=== PATIENT | male | born 1975 ===

== ENCOUNTER 2016-11-25 08:02 | Day surgery (SDC) | payer MEDICAID ==
[2016-11-25 08:33] VITALS: BMI 36.0
[2016-11-25] MEDS ORDERED: Propofol 10 mg/ml Inj (20 ML) ONE ×2 (10:47)
[2016-11-25 11:44] VITALS: TEMP 98; O2SAT 96
[2016-11-25 11:45] VITALS: RESP 12
[2016-11-25 11:50] VITALS: BP 101/55; PULSE 69
== END 2016-11-25 11:45 | disposition home or self-care (01) ==
LOC: C.ENDO 08:02
PROVIDERS: ATTEND Internal Medicine Gastroenterology
DX: K29.50 Unspecified chronic gastritis without bleeding (principal); K57.30 Diverticulosis of large intestine without perforation or abscess without bleeding; K64.8 Other hemorrhoids; B19.20 Unspecified viral hepatitis C without hepatic coma; K59.00 Constipation, unspecified
CPT/HCPCS: 43239; 45378; 88305; 88342; J2704; J3010; J7040

== ENCOUNTER 2017-07-08 08:59 | Inpatient (IN) | payer MEDICAID ==
[2017-07-08 08:59] VITALS: BMI 36.0
[2017-07-08 09:48] LABS: BASO % 0.3 % (0.0-2.0); EOS # 0.3 K/uL (0.0-0.7); EOS % 2.2 % (0.0-4.0); HEMOGLOBIN 15.1 g/dL (12.0-18.0); LYMPH # 3.4 K/uL (1.0-4.3); LYMPH % 29.4 % (20.0-40.0); MEAN CORPUSCULAR HEMOGLOBIN 30.2 pg (27.0-31.0); MEAN CORPUSCULAR HGB CONC 34.3 g/dL (33.0-37.0); MEAN PLATELET VOLUME 8.8 fL (7.2-11.7); MONO # 0.9 K/uL (0.0-0.8); MONO % 7.6 % (0.0-10.0); NEUT % 60.5 % (50.0-75.0); RED CELL DISTRIBUTION WIDTH 13.1 % (11.5-14.5); WHITE BLOOD COUNT 11.5 K/uL (4.8-10.8)
[2017-07-08 09:52] LABS: URINE BILIRUBIN NEGATIVE (NEGATIVE); URINE BLOOD NEGATIVE (NEGATIVE); URINE CLARITY Clear (Clear); URINE COLOR Yellow (YELLOW); URINE GLUCOSE (UA) NORMAL (Normal); URINE LEUKOCYTE ESTERASE NEG Leu/uL (Negative); URINE NITRATE NEGATIVE (NEGATIVE); URINE PROTEIN NEGATIVE (NEGATIVE); URINE UROBILINOGEN NORMAL mg/dL (0.2-1.0)
--- NOTE | 2017-07-08 09:53 | C.PDOC ---
History Of Present Illness 42 y/o male presents to ED requesting heroin detox. Patient states he last used last night and denies any fever, chills, nausea, vomiting, chest pain or any other complaints at this time. Time Seen by Provider: 07/08/17 09:12 Chief Complaint (Nursing): Substance Abuse History Per: Patient History/Exam Limitations: no limitations Onset/Duration Of Symptoms: Days Current Symptoms Are (Timing): Still Present Suicide/Self Injury Attempted (Context): None Past Medical History Reviewed: Historical Data, Nursing Documentation, Vital Signs Vital Signs: Last Vital Signs Temp 99.5 F 07/08/17 09:05 Pulse 67 07/08/17 09:05 Resp 18 07/08/17 09:05 BP 143/89 07/08/17 09:35 Pulse Ox 97 07/08/17 10:06 - Medical History PMH: Anxiety, Depression, HTN Surgical History: Appendectomy Family History: States: No Known Family Hx - Social History Hx Alcohol Use: Yes Hx Substance Use: Yes (LAST USE LAST NIGHT) - Immunization History Hx Tetanus Toxoid Vaccination: No Hx Influenza Vaccination: No Hx Pneumococcal Vaccination: No Review Of Systems Constitutional: Negative for: Fever, Chills Cardiovascular: Negative for: Chest Pain Respiratory: Negative for: Shortness of Breath Gastrointestinal: Negative for: Nausea, Vomiting Skin: Negative for: Rash Psych: Negative for: Anxiety, Suicidal ideation, Withdrawal Physical Exam - Physical Exam Appears: Non-toxic, No Acute Distress Skin: Normal Color, Warm, Dry, No Rash Head: Atraumatic, Normacephalic Eye(s): bilateral: Normal Inspection Oral Mucosa: Moist Neck: Supple Cardiovascular: Rhythm Regular Respiratory: Normal Breath Sounds, No Rales, No Rhonchi, No Wheezing Gastrointestinal/Abdominal: Soft, No Tenderness, No Guarding, No Rebound Extremity: Normal ROM, Capillary Refill (<2 seconds) Neurological/Psych: Oriented x3 ED Course And Treatment - Laboratory Results Result Diagrams: 07/08/17 09:44 07/08/17 09:44 O2 Sat by Pulse Oximetry: 97 (RA) Pulse Ox Interpretation: Normal Medical Decision Making Medical Decision Making: Progress: Patient is medically cleared for detox aceepted by dr burgos Disposition - Disposition Disposition: HOSPITALIZED Disposition Time: 11:03 Condition: STABLE Forms: [facility] (Romanian) - Clinical Impression Clinical Impression: Opiate addiction - Scribe Statement The provider has reviewed the documentation as recorded by the Scribe Kelly Liang All medical record entries made by the Scribe were at my direction and personally dictated by me. I have reviewed the chart and agree that the record accurately reflects my personal performance of the history, physical exam, medical decision making, and the department course for this patient. I have also personally directed, reviewed, and agree with the discharge instructions and disposition. Decision To Admit - Pt Status Changed To: Hospital Disposition Of: Inpatient - Admit Certification Admit to Inpatient:: After my assessment, the patient will require hospitalization for at least two midnights. This is because of the severity of symptoms shown, intensity of services needed, and/or the medical risk in this patient being treated as an outpatient. - InPatient: Physician Admission Certification: I certify that this patient requires 2 or more midnights of care for the following reason:: needs detox - . Bed Request Type: Detox Admitting Physician: Rubio Burgos Patient Diagnosis: Opiate addiction
--- NOTE | 2017-07-08 10:04 | RAD ---
HISTORY: pysch COMPARISON: No prior. TECHNIQUE: Chest PA and lateral FINDINGS: LUNGS: No active pulmonary disease. PLEURA: No significant pleural effusion identified. No pneumothorax apparent. CARDIOVASCULAR: Normal. OSSEOUS STRUCTURES: No significant abnormalities. VISUALIZED UPPER ABDOMEN: Normal. OTHER FINDINGS: None. IMPRESSION: No active disease.
[2017-07-08 10:05] LABS: ALB/GLOB RATIO 1.1 (1.0-2.1); ALT/SGPT 30 U/L (21-72); AST/SGOT 21 U/L (17-59); BLOOD UREA NITROGEN 11 mg/dL (9-20); CALCIUM 8.3 mg/dl (8.6-10.4); GFR AFRICAN-AMERICAN > 60; GFR NON-AFRICAN AMERICAN > 60
[2017-07-08 10:16] LABS: BARBITURATES, UR NEGATIVE (NEGATIVE); BENZODIAZEPINES, UR NEGATIVE (NEGATIVE); PHENCYCLIDINE, UR NEGATIVE (NEGATIVE)
[2017-07-08 10:41] LABS: OPIATES, UR POSITIVE (NEGATIVE)
[2017-07-08] MEDS ORDERED: Aluminum Hydroxide/Magnesium Hydroxide Susp (30 mL) PO PRN (13:17)
--- NOTE | 2017-07-08 13:36 | PCM.BM ---
<Jenni Johnson - Last Filed: 07/08/17 13:35> Treatment Plan Problems - Problems identified on initial assessmt Potential for opiate withdrawal Date Initiated: 07/08/17 Assessment reference: NA Status: Active Treatment assets and liabiliti Patient Assests: adapts well, cooperative, motivated, ADL independent, negotiates basic needs, good interpersonal skills Patient Liabilities: substance abuse - Milieu Protocol Maintain good personal hygiene: daily Encourage regular showers, daily Remind patient to perform daily oral care, daily Assist patient to perform ADL's Conduct patient checks and document Observation sheet: Q15 minutes Maintain personal safety: every shift Educate patient to report safety concerns to staff, every shift Monitor environment for contraband/sharps Medication safety: Monitor for expected outcome, potential side effects: every shift, Assess barriers to learning: every shift, Assess readiness for medication education: every shift <Tasia Christopher - Last Filed: 07/10/17 11:52> Family Contact Family involvement: Patient does not wish Family/SO involvement Family contact: Patient declines to allow family contact at present - Goals for Treatment Patient goals for treatment: COMPLETE DETOX, ATTEND OUTPATIENT COUNSELING AND SUPPLEMENT WITH 12-STEP MEETINGS. Discharge/Continuing Care - Education Needs Education Needs: Patient Medication, Patient Diagnosis/Disease Process, Patient Coping Skills, Patient Anger Management skills, Patient Placement options, Patient Community resources - Discharge Discharge Criteria: No longer exhibiting s/s of withdrawal, Reduction of target symptoms Discharge to:: Home - Treatment Team Participation Patient/Family/SO Statement: 07/10/17 11:54 "I GO TO MEETINGS BUT I'LL TRY OUTPATIENT..." Discussed with Family/SO: No Was Patient/Family/SO present at Treatment Team Meeting: Yes <Rubio Graham - Last Filed: 07/10/17 23:41> - Diagnosis (1) Opiate addiction Status: Acute Interventions: 07/10/17 23:41 * Assess 7x/week regarding severity of withdrawal * Educate regarding risks, benefits, side effects and alternatives of medications * Use Motivational Interviewing for abstinence * Use CBT for relapse prevention * Medication management for withdrawal symptoms * Encourage medication assisted treatment *
[2017-07-08] MEDS: Metoprolol Succinate 100 mg XL Tab PO SCH (14:14)
--- NOTE | 2017-07-09 00:29 | PCM.PSYCH ---
Initial Psychiatric Evaluation - Initial Psychiatric Evaluation Type of Admission: Voluntary Legal Status: Capacity Chief Complaint (in patient's own words): "I need detox" History of Present Illness and Precipitating Events: The pt is seen, chart reviewed and case discussed He is a 42 yo LM, single w 3 children (7, 10, 21 y/o), unemployed, lives with GF He is here for heroin detox: using 7 bags intranasally x 1 month Relapsed after 1 year sobriety but has a 22-yr hx He was in detox 7x and rehab 3x No MAT but NA Used cocaine, Xanax and MJ in the past but nothing else anymore Smokes 1/2 ppd Has mild anxiety/dep sxs Past psych hx: No admissions but using lexapro for dep/YAHIR Medical hx: HTN Family psych hx: Cousins use heroin Current Medications: Active Medications Generic Name Dose Route Start Last Admin Trade Name Freq PRN Reason Stop Dose Admin Al Hydrox/Mg Hydrox/Simethicone 30 ml 07/08/17 13:17 Maalox 30 Ml PO TID PRN Indigestion / Heartburn Clonidine HCl 0.1 mg 07/08/17 13:17 Catapres PO Q8 PRN COWS Score More or Equal to 5 Escitalopram Oxalate 10 mg 07/08/17 13:30 07/08/17 14:14 Lexapro PO Not Given DAILY GIANFRANCO Hydroxyzine HCl 50 mg 07/08/17 13:16 07/08/17 22:00 Atarax PO 50 mg Q6H PRN Administration Anxiety Ibuprofen 600 mg 07/08/17 13:16 Motrin Tab PO Q6H PRN Pain, moderate (4-7) Loperamide HCl 2 mg 07/08/17 13:17 Imodium PO Q8 PRN Diarrhea Metoprolol Succinate 100 mg 07/08/17 13:30 07/08/17 14:14 Toprol Xl PO Not Given DAILY GIANFRANCO Nicotine 1 patch 07/08/17 14:00 07/08/17 14:14 Nicoderm Cq TD Not Given DAILY GIANFRANCO Ondansetron HCl 4 mg 07/08/17 13:17 Zofran Tab PO Q8 PRN Nausea/Vomiting Trazodone HCl 100 mg 07/08/17 13:16 07/08/17 22:00 Desyrel PO 100 mg HS PRN Administration Insomnia Past Psychiatric History - Past Psychiatric History Previous Treatment History: None (outpt only) Pertinent Medical Hx (Current Medical&Sleep Prob, Allergies): Allergies Allergy/AdvReac Type Severity Reaction Status Date / Time FISH AdvReac Severe RASH Verified 07/08/17 15:01 Ergocalciferol [Drisdol 50,000 Intl Units Cap] 1 cap PO QWK 11/25/16 Escitalopram [Lexapro] 10 mg PO DAILY 11/25/16 Fluticasone Propionate [Flovent Diskus] 50 mcg IH BID 11/25/16 Metoprolol Succinate [Toprol XL] 100 mg PO DAILY 11/25/16 RX: Naproxen 500 mg PO PRN PRN 11/25/16 traZODone [trazODONE HYDROCHLORIDE] 50 mg PO DAILY 11/25/16 Review of Systems - Neurological Neurological: UNREMARKABLE - Psychiatric Psychiatric: Abnormal Sleep Pattern, Anxiety, Difficulty Concentrating. absent : Hallucinations, Homicidal Ideation, Paranoia, Suicidal Ideation Mental Status Examination - Personal Presentation Personal Presentation: Looks older than stated age - Affect Affect: Constricted - Motor Activity Motor Activity: Calm - Reliability in Providing Information Reliability in Providing Information: Good - Speech Speech: Organized - Mood Mood: Anxious - Formal Thought Process Formal Thought Process: No Impairment - Cognitive Functions Orientation: Person, Place, Situation, Time Sensorium: Alert Attention/Concentration: Easily distracted Estimate of Intelligence: Average Judgement: Intact, as evidence by: Insight regarding need for hospitalization Memory: Recent intact, as evidence by: Ability to recall events of the day, Remote intact, as evidenced by: Abilit to recall sig. 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
[2017-07-09] MEDS: Metoprolol Succinate 100 mg XL Tab PO SCH (09:20)
[2017-07-09 09:49] VITALS: RESP 18
--- NOTE | 2017-07-09 15:17 | PCM.PYCHPN ---
Psychiatric Progress Note - Psychiatric Progress Note Patient seen today, length of contact: 16 min Patient Chief Complaint: "I am a little better" Problems Identified/Issues Discussed: The pt is seen, chart reviewed, case discussed with staff. The pt is compliant with medications and reports no side-effects. Symptoms are improving but needs more time to stabilize. After care discussed, support and psychoeducation given. Medication Change: Yes (detox changes daily) Medical Record Reviewed: Yes Mental Status Examination - Cognitive Function Orientation: Person, Place, Situation, Time Memory: Intact Attention: WNL Concentration: WNL Association: WNL Fund of Knowledge: WNL - Mood Mood: Anxious - Affect Affect: Constricted - Speech Speech: Appropriate - Formal Thought Process Formal Thought Process: No Impairment - Suicidal Ideation Suicidal Ideation: No - Homicidal Ideation Homicidal Ideation: No Goal/Treatment Plan - Goal/Treatment Plan Need for Continued Stay: Discharge may exacerbated symptoms, Severe functional impairment Progress Toward Problem(s) and Goals/Treatment Plan: Methadone detox As needed medications Lexapro for YAHIR and dep Attend groups and activities Supportive therapy and psychoeducation [place] for abstinence CBT for relapse prevention Encourage MAT Refer to rehab or IOP Attend self-help groups as well Nicotine patch and [place] for tobacco
[2017-07-10] MEDS: Metoprolol Succinate 100 mg XL Tab PO SCH (09:58)
--- NOTE | 2017-07-10 20:50 | PCM.PYCHPN ---
Psychiatric Progress Note - Psychiatric Progress Note Patient seen today, length of contact: 16 min Patient Chief Complaint: "I am OK" Problems Identified/Issues Discussed: The pt is seen, chart reviewed, case discussed with staff. Support given, CBT and MD used briefly No new symptoms reported, improving slowly and needs more time No SEs from medications, risks discussed. After care discussed Medication Change: Yes (detox changes daily) Medical Record Reviewed: Yes Mental Status Examination - Cognitive Function Orientation: Person, Place, Situation, Time Memory: Intact Attention: WNL Concentration: WNL Association: WNL Fund of Knowledge: WNL - Mood Mood: Anxious - Affect Affect: Constricted - Speech Speech: Appropriate - Formal Thought Process Formal Thought Process: No Impairment - Suicidal Ideation Suicidal Ideation: No - Homicidal Ideation Homicidal Ideation: No Goal/Treatment Plan - Goal/Treatment Plan Need for Continued Stay: Discharge may exacerbated symptoms, Severe functional impairment Progress Toward Problem(s) and Goals/Treatment Plan: Methadone detox As needed medications Lexapro for YAHIR and dep Attend groups and activities Supportive therapy and psychoeducation MD for abstinence CBT for relapse prevention Encourage MAT Refer to rehab or IOP Attend self-help groups as well Nicotine patch and MD for tobacco
--- NOTE | 2017-07-11 08:47 | PCM.PYCHDC ---
Mental Status Examination - Mental Status Examination Orientation: Person Discharge Summary - Discharge Note Consultations:: List each consultation separately and include: 1. Reason for request. 2. Findings. 3. Follow-up Summary of Hospital Course include:: 1. Description of specific treatment plan utilized for patients during their course of treatmen. 2. Summarize the time- course for resolution of acute symptoms and/or regressed behaviors. 3. Describe issues identified and worked on during hospitalization. 4. Describe medication utilized. 5. Describe medical problems identified and treated. 6. Reassessment of suicide risk Summary of Hospital Course: The pt is seen, chart reviewed and case discussed He is a 42 yo LM, single w 3 children (7, 10, 21 y/o), unemployed, lives with GF He is here for heroin detox: using 7 bags intranasally x 1 month Relapsed after 1 year sobriety but has a 22-yr hx He was in detox 7x and rehab 3x No MAT but NA Used cocaine, Xanax and MJ in the past but nothing else anymore Smokes 1/2 ppd Has mild anxiety/dep sxs Past psych hx: No admissions but using lexapro for dep/YAHIR Medical hx: HTN Family psych hx: Cousins use heroin - Diagnosis (1) Opiate addiction Current Visit: Yes Status: Acute - Final Diagnosis (DSM 5) Condition upon Discharge: STABLE Disposition: HOME/ ROUTINE Follow-up Treatment Plan: Methadone detox As needed medications Lexapro for YAHIR and dep Attend groups and activities Supportive therapy and psychoeducation [place] for abstinence CBT for relapse prevention Encourage MAT Refer to rehab or IOP Attend self-help groups as well Nicotine patch and [place] for tobacco Prescriptions/Medication Reconciliation: Escitalopram [Lexapro] 10 mg PO DAILY #30 tab Metoprolol Succinate [Toprol XL] 100 mg PO DAILY #30 tab traZODone [Desyrel] 100 mg PO HS PRN #30 tab PRN Reason: Insomnia
[2017-07-11] MEDS: Metoprolol Succinate 100 mg XL Tab PO SCH (09:02)
[2017-07-11 09:58] VITALS: BP 114/70; PULSE 63; TEMP 98.4; O2SAT 97
== END 2017-07-11 10:45 | disposition home or self-care (01) | DRG 745 ==
LOC: C.ER 08:59 → C.7D 11:03
PROVIDERS: ADMIT Psychiatry & Neurology Psychiatry; ATTEND Psychiatry & Neurology Psychiatry
PROC: HZ2ZZZZ Detoxification Services for Substance Abuse Treatment (ICD-10-PCS; principal; 2017-07-08)
PROC: HZ52ZZZ Individual Psychotherapy for Substance Abuse Treatment, Cognitive-Behavioral (ICD-10-PCS; 2017-07-08)
PROC: HZ42ZZZ Group Counseling for Substance Abuse Treatment, Cognitive-Behavioral (ICD-10-PCS; 2017-07-08)
PROC: HZ59ZZZ Individual Psychotherapy for Substance Abuse Treatment, Supportive (ICD-10-PCS; 2017-07-08)
PROC: HZ56ZZZ Individual Psychotherapy for Substance Abuse Treatment, Psychoeducation (ICD-10-PCS; 2017-07-08)
PROC: HZ46ZZZ Group Counseling for Substance Abuse Treatment, Psychoeducation (ICD-10-PCS; 2017-07-08)
DX: F11.23 Opioid dependence with withdrawal (principal); F13.21 Sedative, hypnotic or anxiolytic dependence, in remission; F32.9 Major depressive disorder, single episode, unspecified; I10 Essential (primary) hypertension; F41.1 Generalized anxiety disorder; F14.21 Cocaine dependence, in remission; F17.210 Nicotine dependence, cigarettes, uncomplicated; G47.00 Insomnia, unspecified

== ENCOUNTER 2017-09-15 13:08 | Inpatient (IN) | payer MEDICAID, OTHER ==
[2017-09-15 13:08] VITALS: BMI 36.0
[2017-09-15 14:25] LABS: BASO # 0.1 K/uL (0.0-0.2); BASO % 0.6 % (0.0-2.0); EOS # 0.1 K/uL (0.0-0.7); EOS % 1.3 % (0.0-4.0); HEMOGLOBIN 14.1 g/dL (12.0-18.0); LYMPH # 2.3 K/uL (1.0-4.3); LYMPH % 25.1 % (20.0-40.0); MEAN CELL VOLUME 87.7 fL (80.0-94.0); MEAN CORPUSCULAR HGB CONC 34.3 g/dL (33.0-37.0); MEAN PLATELET VOLUME 8.8 fL (7.2-11.7); MONO # 0.6 K/uL (0.0-0.8); NEUT # 6.1 K/uL (1.8-7.0); RBC 4.71 Mil/uL (4.40-5.90); RED CELL DISTRIBUTION WIDTH 13.6 % (11.5-14.5); WHITE BLOOD COUNT 9.3 K/uL (4.8-10.8)
[2017-09-15 14:27] LABS: SQUAMOUS EPITHIAL < 1 /hpf (0-5); URINE BILIRUBIN NEGATIVE (NEGATIVE); URINE BLOOD NEGATIVE (NEGATIVE); URINE CLARITY Clear (Clear); URINE COLOR Yellow (YELLOW); URINE GLUCOSE (UA) NORMAL (Normal); URINE LEUKOCYTE ESTERASE NEG Leu/uL (Negative); URINE PROTEIN NEGATIVE (NEGATIVE); URINE UROBILINOGEN NORMAL mg/dL (0.2-1.0)
[2017-09-15 14:44] LABS: ALB/GLOB RATIO 1.1 (1.0-2.1); ALBUMIN 4.2 g/dL (3.5-5.0); ALT/SGPT 28 U/L (21-72); AST/SGOT 26 U/L (17-59); BLOOD UREA NITROGEN 10 mg/dL (9-20); CALCIUM 8.9 mg/dl (8.6-10.4); GFR AFRICAN-AMERICAN > 60; GFR NON-AFRICAN AMERICAN > 60
--- NOTE | 2017-09-15 14:48 | C.PDOC ---
History Of Present Illness Pt is here requesting detox from Heroin. Time Seen by Provider: 09/15/17 13:27 Chief Complaint (Nursing): Substance Abuse History Per: Patient Onset/Duration Of Symptoms: Days Current Symptoms Are (Timing): Still Present Suicide/Self Injury Attempted (Context): None Modifying Factor(s): Narcotics Severity: Moderate Associated Symptoms: denies: Suicidal Thoughts, Suicidal Plan Additional History Per: Prior Records Past Medical History Reviewed: Historical Data, Nursing Documentation, Vital Signs Vital Signs: Last Vital Signs Temp 98.1 F 09/15/17 13:15 Pulse 76 09/15/17 13:15 Resp 18 09/15/17 13:15 BP 131/95 H 09/15/17 13:15 Pulse Ox 98 09/15/17 14:49 - Medical History PMH: Anxiety, Depression, Hepatitis (C, treated.), HTN Surgical History: Appendectomy - [facility] DETOXIFICATION SERVICES FOR SUBSTANCE ABUSE TREATMENT (07/08/17) GROUP COMMUNITY SERVICE DIRECTOR FOR SUBSTANCE ABUSE TREATMENT, PSYCHOEDUCATION (07/08/17) GROUP COMMUNITY SERVICE DIRECTOR FOR SUBSTANCE ABUSE, COGNITIVE BEHAVIORAL (07/08/17) INDIV PSYCHOTHERAPY FOR SUBSTANCE ABUSE TREATMENT, SUPPORT (07/08/17) INDIV PSYCHOTHERAPY FOR SUBSTANCE ABUSE, COGNITIV BEHAVIORAL (07/08/17) INDIV PSYCHOTHERAPY FOR SUBSTANCE ABUSE, PSYCHOEDUCATION (07/08/17) Family History: States: Unknown Family Hx - Social History Hx Tobacco Use: Yes Hx Alcohol Use: Yes (occasional drinking) Hx Substance Use: Yes (IVDU HEROIN, XANAX) - Immunization History Hx Tetanus Toxoid Vaccination: No Hx Influenza Vaccination: No Hx Pneumococcal Vaccination: No Review Of Systems Except As Marked, All Systems Reviewed And Found Negative. Constitutional: Negative for: Fever, Weakness Cardiovascular: Negative for: Chest Pain Respiratory: Negative for: Shortness of Breath Gastrointestinal: Negative for: Vomiting, Abdominal Pain Musculoskeletal: Negative for: Neck Pain Skin: Negative for: Rash Neurological: Negative for: Weakness, Numbness, Seizures, Altered Mental Status Physical Exam - Physical Exam Appears: Non-toxic, No Acute Distress Skin: Normal Color, Warm, Dry Head: Atraumatic, Normacephalic Eye(s): bilateral: PERRL, EOMI Neck: Normal ROM, Supple Cardiovascular: Rhythm Regular Respiratory: Normal Breath Sounds, No Accessory Muscle Use Gastrointestinal/Abdominal: Soft, No Tenderness Extremity: Normal ROM, Other (Track ocampo on upper extremities) Neurological/Psych: Oriented x3, Normal Cognition, Normal Motor, Normal Sensation ED Course And Treatment - Laboratory Results Result Diagrams: 09/15/17 14:21 09/15/17 14:21 Lab Interpretation: No Acute Changes O2 Sat by Pulse Oximetry: 98 Pulse Ox Interpretation: Normal Progress Note: Pt is medically stable for detox admission. Disposition Counseled Patient/Family Regarding: Studies Performed, Diagnosis - Disposition Disposition: HOSPITALIZED Disposition Time: 15:25 Condition: STABLE - Clinical Impression Clinical Impression: Opioid dependence Decision To Admit - Pt Status Changed To: Hospital Disposition Of: Inpatient - Admit Certification Admit to Inpatient:: After my assessment, the patient will require hospitalization for at least two midnights. This is because of the severity of symptoms shown, intensity of services needed, and/or the medical risk in this patient being treated as an outpatient. - InPatient: Physician Admission Certification: I certify that this patient requires 2 or more midnights of care for the following reason:: Detox. - . Bed Request Type: Detox Admitting Physician: Rubio Graham Patient Diagnosis: Opioid dependence
[2017-09-15 14:53] LABS: BARBITURATES, UR NEGATIVE (NEGATIVE); PHENCYCLIDINE, UR NEGATIVE (NEGATIVE)
[2017-09-15 15:09] LABS: BENZODIAZEPINES, UR POSITIVE (NEGATIVE); OPIATES, UR POSITIVE (NEGATIVE)
--- NOTE | 2017-09-15 20:11 | PCM.BM ---
<ShayyMerlyn - Last Filed: 09/15/17 20:10> Treatment Plan Problems - Problems identified on initial assessmt Potential for opiate withdrawal Date Initiated: 09/15/17 Time Initiated: 20:11 Assessment reference: NA Status: Active Treatment assets and liabiliti Patient Assests: cooperative, ADL independent, negotiates basic needs, good interpersonal skills Patient Liabilities: substance abuse (Heroin) - Milieu Protocol Maintain good personal hygiene: daily Encourage regular showers, daily Remind patient to perform daily oral care, daily Assist patient to perform ADL's Conduct patient checks and document Observation sheet: Q15 minutes Maintain personal safety: every shift Educate patient to report safety concerns to staff, every shift Monitor environment for contraband/sharps Medication safety: Monitor for expected outcome, potential side effects: every shift, Assess barriers to learning: every shift, Assess readiness for medication education: every shift <Rubio Graham - Last Filed: 09/16/17 21:33> - Diagnosis (1) Opioid use disorder, severe, dependence Status: Acute Interventions: 09/16/17 21:33 * Assess 7x/week regarding severity of withdrawal * Educate regarding risks, benefits, side effects and alternatives of medications * Use Motivational Interviewing for abstinence * Use CBT for relapse prevention * Medication management for withdrawal symptoms * Encourage medication assisted treatment *
[2017-09-15] MEDS ORDERED: Aluminum Hydroxide/Magnesium Hydroxide Susp (30 mL) PO PRN (22:40)
[2017-09-16] MEDS: Metoprolol Succinate 100 mg XL Tab PO SCH (11:08)
--- NOTE | 2017-09-16 14:05 | PCM.PSYCH ---
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 He is here for heroin detox: using 6-7 bags IV for the past 2-3 months. Relapsed since his last detox at [facility] in July 2017. Patient states when he left here he used the very next day. Patient has also previously relapsed after 1 year sobriety but has a 22-yr history. He was in detox 7x and rehab 3x. Used cocaine, Xanax and MJ in the past but nothing else anymore Smokes 1/2 pack per day for the last 10-15 years. Past psych hx: Has mild anxiety/dep sxs Medical hx: HTN Family psych hx: Cousins use heroin Current Medications: Active Medications Generic Name Dose Route Start Last Admin Trade Name Freq PRN Reason Stop Dose Admin Al Hydrox/Mg Hydrox/Simethicone 30 ml 09/15/17 22:40 Maalox 30 Ml PO TID PRN Indigestion / Heartburn Clonidine HCl 0.1 mg 09/15/17 22:40 Catapres PO Q8 PRN COWS Score More or Equal to 5 Hydroxyzine HCl 25 mg 09/15/17 22:23 09/15/17 22:43 Atarax PO 25 mg Q6 PRN Administration Anxiety Ibuprofen 600 mg 09/15/17 22:48 Motrin Tab PO Q6H PRN Pain, moderate (4-7) Loperamide HCl 2 mg 09/15/17 22:40 Imodium PO Q8 PRN Diarrhea Methadone HCl 15 mg 09/16/17 10:00 09/16/17 11:08 Methadone PO 09/20/17 09:59 15 mg Q24H GIANFRANCO Administration Taper Metoprolol Succinate 100 mg 09/16/17 10:00 09/16/17 11:08 Toprol Xl PO 100 mg DAILY GIANFRANCO Administration Ondansetron HCl 4 mg 09/15/17 22:40 Zofran Tab PO Q8 PRN Nausea/Vomiting Trazodone HCl 50 mg 09/15/17 22:22 09/15/17 22:43 Desyrel PO 50 mg HS PRN Administration Insomnia Past Psychiatric History - Past Psychiatric History Previous Treatment History: Inpatient At [facility] hospital: [facility] Date: 07/08/17 Duration: 4 days Nature of Treatment: Detox Pertinent Medical Hx (Current Medical&Sleep Prob, Allergies): Allergies Allergy/AdvReac Type Severity Reaction Status Date / Time FISH AdvReac Severe RASH Verified 09/15/17 13:20 traZODone [trazODONE HYDROCHLORIDE] 50 mg PO DAILY 11/25/16 Metoprolol Succinate [Toprol XL] 100 mg PO DAILY #30 tab 07/11/17 Review of Systems - Constitutional Constitutional: Chills - Neurological Neurological: UNREMARKABLE - Psychiatric Psychiatric: Anxiety Mental Status Examination - Personal Presentation Personal Presentation: Looks stated age - Affect Affect: Constricted - Reliability in Providing Information Reliability in Providing Information: Fair - Speech Speech: Organized - Mood Mood: Anxious - Formal Thought Process Formal Thought Process: No Impairment - Cognitive Functions Orientation: Person, Place, Situation, Time Judgement: Intact, as evidence by: Insight regarding need for hospitalization Memory: Recent intact, as evidence by: Ability to recall events of the day - Strength & Assets Inventory Strength & Assets Inventory: Cooperative - Limitations Limitations: Other DSM 5 DX - DSM 5 DSM 5 Diagnosis: Opioid withdrawal Opioid use d/o - severe YAHIR 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
[2017-09-17] MEDS: Metoprolol Succinate 100 mg XL Tab PO SCH (10:13)
--- NOTE | 2017-09-17 11:31 | PCM.PYCHPN ---
Psychiatric Progress Note - Psychiatric Progress Note Patient seen today, length of contact: 16 min Patient Chief Complaint: "Can't sleep" Problems Identified/Issues Discussed: The pt is seen, chart reviewed, case discussed with staff. The pt is compliant with medications and reports no side-effects. Symptoms are improving but needs more time to stabilize. After care discussed, support and psychoeducation given. Medication Change: Yes (detox changes daily) Medical Record Reviewed: Yes Mental Status Examination - Cognitive Function Orientation: Person, Place, Situation, Time Memory: Intact Attention: WNL Concentration: Poor Association: WNL Fund of Knowledge: WNL - Mood Mood: Anxious - Affect Affect: Constricted - Speech Speech: Appropriate - Formal Thought Process Formal Thought Process: No Impairment - Suicidal Ideation Suicidal Ideation: No - Homicidal Ideation Homicidal Ideation: No Goal/Treatment Plan - Goal/Treatment Plan Need for Continued Stay: Discharge may exacerbated symptoms, Severe functional impairment Progress Toward Problem(s) and Goals/Treatment Plan: Methadone detox As needed medications Metoprolol Succinate for HTN Attend groups and activities Supportive therapy and psychoeducation SD for abstinence CBT for relapse prevention Encourage MAT Refer to rehab or IOP Attend self-help groups as well Smoking cessation with SD Nicotine patch if needed
[2017-09-18] MEDS: Metoprolol Succinate 100 mg XL Tab PO SCH (10:00)
--- NOTE | 2017-09-18 13:34 | PCM.PYCHPN ---
Psychiatric Progress Note - Psychiatric Progress Note Patient seen today, length of contact: 16 min Patient Chief Complaint: "I did not sleep well last night" Problems Identified/Issues Discussed: The pt is seen, chart reviewed, case discussed with staff. The pt is compliant with medications and reports no side-effects. Symptoms are improving but needs more time to stabilize. After care discussed, support and psychoeducation given. Medication Change: Yes (detox changes daily) Medical Record Reviewed: Yes Mental Status Examination - Cognitive Function Orientation: Person, Place, Situation, Time Memory: Intact Attention: WNL Concentration: Poor Association: WNL Fund of Knowledge: WNL - Mood Mood: Anxious - Affect Affect: Constricted - Speech Speech: Appropriate - Formal Thought Process Formal Thought Process: No Impairment - Suicidal Ideation Suicidal Ideation: No - Homicidal Ideation Homicidal Ideation: No Goal/Treatment Plan - Goal/Treatment Plan Need for Continued Stay: Discharge may exacerbated symptoms, Severe functional impairment Progress Toward Problem(s) and Goals/Treatment Plan: Methadone detox As needed medications Metoprolol Succinate for HTN Attend groups and activities Supportive therapy and psychoeducation MO for abstinence CBT for relapse prevention Encourage MAT Refer to rehab or IOP Attend self-help groups as well Smoking cessation with MO Nicotine patch if needed 33 min
[2017-09-19 06:34] VITALS: PULSE 71
[2017-09-19] MEDS: Metoprolol Succinate 100 mg XL Tab PO SCH (09:13)
[2017-09-19 10:23] VITALS: BP 119/81; RESP 20; TEMP 99.1; O2SAT 99
--- NOTE | 2017-09-19 11:54 | PCM.PYCHDC ---
Mental Status Examination - Mental Status Examination Orientation: Person, Place, Situation, Time Memory: Intact Mood: Neutral Speech: Appropriate Attention: WNL Concentration: WNL Association: WNL Fund of Knowledge: WNL Formal Thought Process: No Impairment Suicidal Ideation: No Current Homicidal Ideation?: No Discharge Summary - Discharge Note Reason for Hospitalization: Heroin detox Psychiatric History (includes Medical, Family, Personal Hx): Detox Consultations:: List each consultation separately and include: 1. Reason for request. 2. Findings. 3. Follow-up Summary of Hospital Course include:: 1. Description of specific treatment plan utilized for patients during their course of treatmen. 2. Summarize the time- course for resolution of acute symptoms and/or regressed behaviors. 3. Describe issues identified and worked on during hospitalization. 4. Describe medication utilized. 5. Describe medical problems identified and treated. 6. 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 He is here for heroin detox: using 6-7 bags IV for the past 2-3 months. Relapsed since his last detox at [facility] in July 2017. Patient states when he left here he used the very next day. Patient has also previously relapsed after 1 year sobriety but has a 22-yr history. He was in detox 7x and rehab 3x. Used cocaine, Xanax and MJ in the past but nothing else anymore Smokes 1/2 pack per day for the last 10-15 years. Past psych hx: Has mild anxiety/dep sxs Medical hx: HTN Family psych hx: Cousins use heroin Hospital Course: The pt was admitted and started on treatment with psychotherapy, support, psychoeducation and medications. NM and CBT used. The pt attended groups and activities, as well as milieu therapy. All the risks and benefits of medications are discussed and the patient understood and agreed. The pt improved with the treatments provided. 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 Follow after care plan as discussed. Use relapse prevention skills Return to ER or call 911 if suicidal, homicidal or symptoms relapse. Stay away from stress, alcohol and drugs. See primary doctor regularly and get labs.
== END 2017-09-19 10:00 | disposition home or self-care (01) | DRG 895 ==
LOC: C.ER 13:08 → C.7D 15:26
PROVIDERS: ADMIT Psychiatry & Neurology Psychiatry; ATTEND Psychiatry & Neurology Psychiatry
PROC: HZ2ZZZZ Detoxification Services for Substance Abuse Treatment (ICD-10-PCS; principal; 2017-09-15)
PROC: HZ52ZZZ Individual Psychotherapy for Substance Abuse Treatment, Cognitive-Behavioral (ICD-10-PCS; 2017-09-15)
PROC: HZ42ZZZ Group Counseling for Substance Abuse Treatment, Cognitive-Behavioral (ICD-10-PCS; 2017-09-15)
PROC: HZ59ZZZ Individual Psychotherapy for Substance Abuse Treatment, Supportive (ICD-10-PCS; 2017-09-15)
PROC: HZ56ZZZ Individual Psychotherapy for Substance Abuse Treatment, Psychoeducation (ICD-10-PCS; 2017-09-15)
PROC: HZ46ZZZ Group Counseling for Substance Abuse Treatment, Psychoeducation (ICD-10-PCS; 2017-09-15)
DX: F11.23 Opioid dependence with withdrawal (principal); F14.21 Cocaine dependence, in remission; F32.9 Major depressive disorder, single episode, unspecified; F41.1 Generalized anxiety disorder; I10 Essential (primary) hypertension; Z87.891 Personal history of nicotine dependence

== ENCOUNTER 2018-09-23 09:33 | Inpatient (IN) | payer MEDICAID, OTHER ==
[2018-09-23 09:33] VITALS: BMI 36.0
--- NOTE | 2018-09-23 11:31 | C.PDOC ---
History Of Present Illness 43 y/o male with PMHx of substance abuse presents to the ED requesting detox from heroin. Patient admits to using IV heroin, last use was approximately 8-9pm last night. He denies any other drug use. He denies any tremors, chills, ab dominal pain, vomiting, palpitations, SOB, or other symptoms of withdrawal. Patient also denies any SI, HI, or hallucinations. He offers no other complaints. Time Seen by Provider: 09/23/18 10:25 Chief Complaint (Nursing): Substance Abuse History Per: Patient History/Exam Limitations: no limitations Onset/Duration Of Symptoms: Days Current Symptoms Are (Timing): Still Present Suicide/Self Injury Attempted (Context): None Modifying Factor(s): Other (Heroin) Associated Symptoms: denies: Suicidal Thoughts, Suicidal Plan Additional History Per: Prior Records Past Medical History Reviewed: Historical Data, Nursing Documentation, Vital Signs Vital Signs: Last Vital Signs Temp 98.8 F 09/23/18 09:45 Pulse 88 09/23/18 09:45 Resp 18 09/23/18 09:45 BP 113/79 09/23/18 09:45 Pulse Ox 98 09/23/18 09:45 - Medical History PMH: Anxiety, Depression, Hepatitis (C, treated.), HTN Denies: Diabetes, HIV, Chronic Kidney Disease, Seizures, Sexually Transmitted Disease Surgical History: Appendectomy - [facility] Procedures DETOXIFICATION SERVICES FOR SUBSTANCE ABUSE TREATMENT (09/15/17) GROUP HATCHERY MAN FOR SUBSTANCE ABUSE TREATMENT, PSYCHOEDUCATION (09/15/17) GROUP HATCHERY MAN FOR SUBSTANCE ABUSE, COGNITIVE BEHAVIORAL (09/15/17) INDIV PSYCHOTHERAPY FOR SUBSTANCE ABUSE TREATMENT, SUPPORT (09/15/17) INDIV PSYCHOTHERAPY FOR SUBSTANCE ABUSE, COGNITIV BEHAVIORAL (09/15/17) INDIV PSYCHOTHERAPY FOR SUBSTANCE ABUSE, PSYCHOEDUCATION (09/15/17) Family History: States: Unknown Family Hx - Social History Hx Tobacco Use: Yes Hx Alcohol Use: No Hx Substance Use: Yes - Immunization History Hx Tetanus Toxoid Vaccination: No Hx Influenza Vaccination: No Hx Pneumococcal Vaccination: No Review Of Systems Except As Marked, All Systems Reviewed And Found Negative. Constitutional: Negative for: Fever, Chills Eyes: Negative for: Vision Change Cardiovascular: Negative for: Chest Pain, Palpitations Respiratory: Negative for: Shortness of Breath Gastrointestinal: Negative for: Vomiting, Abdominal Pain Musculoskeletal: Negative for: Back Pain Neurological: Negative for: Weakness, Numbness Physical Exam - Physical Exam Appears: Well, Non-toxic, No Acute Distress Skin: Normal Color, Warm, No Rash Head: Normacephalic Eye(s): bilateral: PERRL Oral Mucosa: Moist Neck: Trachea Midline, No Midline Cervical Tenderness, No Paracervical Tenderness, Supple Chest: Symmetrical Cardiovascular: Rhythm Regular, No Murmur Respiratory: Normal Breath Sounds, No Accessory Muscle Use, No Rhonchi, No Wheezing Gastrointestinal/Abdominal: Soft, No Tenderness, No Distention, No Guarding Extremity: Bilateral: Atraumatic, Normal Color And Temperature, Normal ROM Neurological/Psych: Oriented x3, Normal Speech, Normal Cranial Nerves, Normal Motor, Normal Sensation, Normal Reflexes Gait: Steady ED Course And Treatment - Laboratory Results Result Diagrams: 09/23/18 11:53 09/23/18 11:53 Lab Interpretation: No Acute Changes O2 Sat by Pulse Oximetry: 98 (on RA) Pulse Ox Interpretation: Normal Progress Note: Labs ordered for medical clearance, and reviewed. farrowing worker to see patient and evaluate for possible detox. Pt remained tsable during the ED evaluation. AAO#3. Blood owrk review and appears normal. Pt was eval by SHUKRI Todd, case discussed with [id number] and admission arranged to detox floor. Disposition - Disposition Disposition: HOSPITALIZED Disposition Time: 12:55 Condition: STABLE - Clinical Impression Clinical Impression: Opioid use disorder, severe, dependence - PA / [employer]CR[employer] / Resident Statement MD/DO has reviewed & agrees with the documentation as recorded. - Scribe Statement The provider has reviewed the documentation as recorded by the Scribbart Edwards All medical record entries made by the Jayshree were at my direction and personally dictated by me. I have reviewed the chart and agree that the record accurately reflects my personal performance of the history, physical exam, medical decision making, and the department course for this patient. I have also personally directed, reviewed, and agree with the discharge instructions and disposition.
[2018-09-23 12:06] LABS: BASO % 0.3 % (0.0-2.0); EOS # 0.2 K/uL (0.0-0.7); EOS % 2.5 % (0.0-4.0); HEMOGLOBIN 15.7 g/dL (12.0-18.0); LYMPH % 27.4 % (20.0-40.0); MEAN CORPUSCULAR HEMOGLOBIN 29.9 pg (27.0-31.0); MEAN CORPUSCULAR HGB CONC 33.6 g/dL (33.0-37.0); MEAN PLATELET VOLUME 9.5 fL (7.2-11.7); MONO # 0.6 K/uL (0.0-0.8); MONO % 8.7 % (0.0-10.0); NEUT # 4.5 K/uL (1.8-7.0); NEUT % 61.1 % (50.0-75.0); NRBC % 0.1 % (0.0-2.0); RBC 5.24 Mil/uL (4.40-5.90); RED CELL DISTRIBUTION WIDTH 13.5 % (11.5-14.5); WHITE BLOOD COUNT 7.4 K/uL (4.8-10.8)
[2018-09-23 12:11] LABS: URINE BILIRUBIN NEGATIVE (NEGATIVE); URINE BLOOD NEGATIVE (NEGATIVE); URINE CLARITY Clear (Clear); URINE COLOR Amber (YELLOW); URINE GLUCOSE (UA) NORMAL (Normal); URINE LEUKOCYTE ESTERASE NEG Leu/uL (Negative); URINE PROTEIN NEGATIVE (NEGATIVE); URINE UROBILINOGEN NORMAL mg/dL (0.2-1.0)
[2018-09-23 12:21] LABS: ALB/GLOB RATIO 1.3 (1.0-2.1); ALBUMIN 4.4 g/dL (3.5-5.0); ALT/SGPT 28 U/L (21-72); AST/SGOT 31 U/L (17-59); BLOOD UREA NITROGEN 13 mg/dL (9-20); CALCIUM 9.6 mg/dl (8.6-10.4); GFR NON-AFRICAN AMERICAN > 60
[2018-09-23 12:39] LABS: BARBITURATES, UR NEGATIVE (NEGATIVE); PHENCYCLIDINE, UR NEGATIVE (NEGATIVE)
[2018-09-23 13:02] LABS: BENZODIAZEPINES, UR POSITIVE (NEGATIVE); OPIATES, UR POSITIVE (NEGATIVE)
--- NOTE | 2018-09-23 13:54 | PCM.BM ---
<Mohsen Goodwin - Last Filed: 09/23/18 13:52> Treatment Plan Problems - Problems identified on initial assessmt denial Date Initiated: 09/23/18 Time Initiated: 13:52 Assessment reference: NA Status: Active defensive coping Date Initiated: 09/23/18 Time Initiated: 13:53 Assessment reference: NA Status: Active chronic low self esteem Date Initiated: 09/23/18 Time Initiated: 13:54 Assessment reference: NA Status: Active Treatment assets and liabiliti Patient Assests: cooperative, ADL independent, negotiates basic needs, good interpersonal skills Patient Liabilities: substance abuse, medical problems - Milieu Protocol Maintain good personal hygiene: daily Encourage regular showers, daily Remind patient to perform daily oral care, daily Assist patient to perform ADL's Conduct patient checks and document Observation sheet: Q15 minutes Maintain personal safety: every shift Educate patient to report safety concerns to staff, every shift Monitor environment for contraband/sharps Medication safety: Monitor for expected outcome, potential side effects: every shift, Assess barriers to learning: every shift, Assess readiness for medication education: every shift <Dami De Los Santos - Last Filed: 09/24/18 15:56> - Diagnosis (1) Opioid use disorder, severe, dependence Status: Acute Interventions: 09/24/18 15:57 * Assess/adjust medications daily and /or as needed * See patient on an individual basis 7x/week to assess symptoms of depression * Monitor for side effects & effectiveness of medications (2) Sedative, hypnotic or anxiolytic use disorder, mild, abuse Status: Acute Interventions: 09/24/18 15:57 * Assess/adjust medications daily and /or as needed * See patient on an individual basis 7x/week to assess symptoms of depression * Monitor for side effects & effectiveness of medications <Tasia Christopher - Last Filed: 09/25/18 10:26> Family Contact Family involvement: Famliy/SO not involved - Goals for Treatment Patient goals for treatment: COMPLETE DETOX AND DISCUSS AFTERCARE OPTIONS WITH CLINICAL STAFF. Discharge/Continuing Care - Education Needs Education Needs: Patient Medication, Patient Diagnosis/Disease Process, Patient Coping Skills, Patient Anger Management skills, Patient Placement options, Patient Community resources - Discharge Discharge Criteria: No longer exhibiting s/s of withdrawal, Reduction of target symptoms Discharge to:: Other (AFTERCARE TBD. OF THIS WRITING, PT. IS UNSURE.) - Treatment Team Participation Patient/Family/SO Statement: 09/25/18 10:26 "I DON'T KNOW WHAT I WANNA DO YET..." Discussed with Family/SO: No Was Patient/Family/SO present at Treatment Team Meeting: Yes
[2018-09-23] MEDS ORDERED: Aluminum Hydroxide/Magnesium Hydroxide Susp (30 mL) PO PRN (14:56)
--- NOTE | 2018-09-24 16:04 | PCM.PSYCH ---
Initial Psychiatric Evaluation - Initial Psychiatric Evaluation Type of Admission: Voluntary Legal Status: Capacity Chief Complaint (in patient's own words): I relapsed on heroin and I need help. History of Present Illness and Precipitating Events: Patient is a 43 years old, single, employed, male with no previous psychiatric history was admitted due to withdrawing from opioids and anxiolytic. Opioid: Patient started using heroin about 20 years ago, increased gradually, currently he was using up to 15 bags of heroin daily, IV. Last used 2 days ago. This is patient's third detox here at [facility]. His last detox at [facility] was in September 2017. Patient reported that he relapsed after discharge from the hospital. Anxiolytic: Patient's urine drug screen was also positive for benzodiazepine. Patient was guarded about further details but reported that he is using Xanax or Klonopin at times. Last used reported yesterday. Cigarettes: Patient smokes 1/2 to 1 pack of cigarettes daily, refused to take nicotine patch. Patient has history of appendicectomy. Patient was arrested many times in the past. His last arrest was in 2004 due to distribution of drugs. He is not on any probation. Patient was born in [place] and has 12 grade of education. 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 Patient lives with his girlfriend, never . Patient has 3 children with ages of 21, 12 and 8 years. His children who are from 3 different females live with their mothers. His height is 5 feet 7 inches and weight is 210 pounds. Current Medications: Active Medications Generic Name Dose Route Start Last Admin Trade Name Freq PRN Reason Stop Dose Admin Al Hydrox/Mg Hydrox/Simethicone 30 ml 09/23/18 14:56 Maalox 30 Ml PO TID PRN Indigestion / Heartburn Clonidine HCl 0.1 mg 09/23/18 14:52 09/23/18 21:07 Catapres PO 0.1 mg Q4 PRN Administration COWS Score More or Equal to 5 Dicyclomine HCl 10 mg 09/23/18 14:56 Bentyl PO Q6 PRN Muscle spasm Gabapentin 400 mg 09/23/18 18:00 09/24/18 13:36 Neurontin PO 400 mg TID GIANFRANCO Administration Hydroxyzine HCl 25 mg 09/23/18 14:57 09/23/18 21:07 Atarax PO 25 mg Q6 PRN Administration Anxiety Ibuprofen 600 mg 09/23/18 14:56 Motrin Tab PO Q6 PRN Pain, moderate (4-7) Loperamide HCl 2 mg 09/23/18 14:56 Imodium PO Q8 PRN Diarrhea Lorazepam 0.5 mg 09/23/18 15:00 09/23/18 21:07 Ativan PO 0.5 mg Q6 PRN Administration Anxiolytiv withdrawing Methadone HCl 15 mg 09/24/18 10:00 09/24/18 09:13 Methadone PO 09/27/18 09:59 15 mg Q24H GIANFRANCO Administration Taper Ondansetron HCl 4 mg 09/23/18 14:56 Zofran Tab PO Q8 PRN Nausea/Vomiting Trazodone HCl 50 mg 09/23/18 22:00 09/23/18 21:07 Desyrel PO 50 mg HS GIANFRANCO Administration Past Psychiatric History - Past Psychiatric History Previous Treatment History: Inpatient At [facility] hospital: [facility] Nature of Treatment: History of 2 previous detox. History of Abuse: None reported History of ETOH/Drug Use: See HPI History of Family Illness: Patient has extensive family history of psychiatric illness. Patient reported that he is paternal grandfather, his father and 4 of his paternal uncles committed suicide. Also that his older brother was using heroin, who of heart attack. Pertinent Medical Hx (Current Medical&Sleep Prob, Allergies): Allergies Allergy/AdvReac Type Severity Reaction Status Date / Time FISH AdvReac Severe RASH Verified 09/15/17 13:20 traZODone [trazODONE HYDROCHLORIDE] 50 mg PO DAILY 11/25/16 Metoprolol Succinate XL [Toprol XL] 100 mg PO DAILY #30 tab 07/11/17 Hypertension Hepatitis C Review of Systems - Psychiatric Psychiatric: As Per HPI, Abnormal Sleep Pattern, Anhedonia, Anxiety Mental Status Examination - Personal Presentation Personal Presentation: Looks stated age - Affect Affect: Other (Appropriate) - Motor Activity Motor Activity: Calm - Reliability in Providing Information Reliability in Providing Information: Fair - Speech Speech: Organized - Mood Mood: Anxious - Formal Thought Process Formal Thought Process: No Impairment - Hallucinations/Delusions Hallucinations: Other (None reported) Delusions: Other - Obsessions/Compulsions Obsessions: None Compulsions: None - Cognitive Functions Orientation: Person, Place, Situation, Time Sensorium: Alert Attention/Concentration: Attentive Abstract Thinking: [place] Estimate of Intelligence: Average Judgement: Intact, as evidence by: Insight regarding need for hospitalization Memory: Recent intact, as evidence by: Ability to recall events of the day, Remote intact, as evidenced by: Ability to recall historical events - Risk Risk: Withdrawal, Diminished functioning - Strength & Assets Inventory Strength & Assets Inventory: Employment status, Cooperative - Limitations Limitations: Other (Lives with his girlfriend.) DSM 5 DX - DSM 5 DSM 5 Diagnosis: Opioid withdrawal Opioid use disorder severe Anxiolytic use disorder moderate - Recommended/Plan of Treatment Treatment Recommendations and Plan of Treatment: Patient education. Supportive therapy. CBT for relapse prevention. IA for abstinence. We will start methadone taper for opioid withdrawal symptoms. We will start Ativan 0.5 mg p.o. every 6 hours as needed for anxiolytic withdrawal. Other as needed medications. Projected ELOS: 4-5 days - Smoking Cessation Smoking Cessation Initiated: No Reason for not providing: Patient refused
--- NOTE | 2018-09-25 16:36 | RAD ---
Date of service: 09/25/2018 HISTORY: Rehab placement COMPARISON: 07/08/2017. TECHNIQUE: Chest PA and lateral FINDINGS: LINES AND TUBES: None. LUNG AND PLEURA: The lungs are well inflated and clear. No pleural effusion or pneumothorax. HEART AND MEDIASTINUM: The heart is not enlarged. No aortic atherosclerotic calcifications present. The hilar and mediastinal contours are within normal limits. SKELETAL STRUCTURES: The bony structures are within normal limits for the patient's age. VISUALIZED UPPER ABDOMEN: Normal. OTHER FINDINGS: None. IMPRESSION: No active pulmonary disease.
--- NOTE | 2018-09-25 23:49 | PCM.PYCHPN ---
Psychiatric Progress Note - Psychiatric Progress Note Patient Chief Complaint: I relapsed on heroin and I need help. Medication Change: No Medical Record Reviewed: Yes Mental Status Examination - Cognitive Function Orientation: Person, Place, Situation, Time - Mood Mood: Anxious - Affect Affect: Other (Appropriate) - Formal Thought Process Formal Thought Process: No Impairment Goal/Treatment Plan - Goal/Treatment Plan Progress Toward Problem(s) and Goals/Treatment Plan: Patient education. Supportive therapy. CBT for relapse prevention. WA for abstinence. We will start methadone taper for opioid withdrawal symptoms. We will start Ativan 0.5 mg p.o. every 6 hours as needed for anxiolytic withdrawal. Other as needed medications.
--- NOTE | 2018-09-26 22:19 | PCM.PYCHPN ---
Psychiatric Progress Note - Psychiatric Progress Note Patient seen today, length of contact: 15 Minutes Patient Chief Complaint: "I am feeling much better today" Problems Identified/Issues Discussed: Patient was seen and chart was reviewed. Case was discussed with staff. Issued related to the illness and treatment were discussed with the patient, and issues related to illness and treatment were discussed with the patient and staff. Patient reported compliance with treatment and no adverse effects from the medications were reported. Patient is tolerating treatment well at this time. Patient reports minimal withdrawal symptoms such as body aches, sweating, and, decreased sleep. Patient reports mood as improved, affect is congruent with mood. Aftercare was discussed with patient and he verbalized understanding. Patient denies any delusions, auditory/visual hallucinations, or perceptual disturbances. Patient also denies any suicidal or homicidal ideation/plan/intent at this time. Medication Change: No Medical Record Reviewed: Yes Mental Status Examination - Cognitive Function Orientation: Person, Place, Situation, Time Memory: Intact Attention: WNL Concentration: WNL Association: WNL Fund of Knowledge: Poor - Mood Mood: Anxious - Affect Affect: Blunted, Other (Appropriate) - Speech Speech: Appropriate - Formal Thought Process Formal Thought Process: No Impairment - Suicidal Ideation Suicidal Ideation: No - Homicidal Ideation Homicidal Ideation: No Goal/Treatment Plan - Goal/Treatment Plan Progress Toward Problem(s) and Goals/Treatment Plan: All risks, benefits and alternatives of the medications discussed, and the patient agreed and understood Attend group activities Supportive therapy and psychoeducation [place] for abstinence CBT for relapse prevention Encourage MAT Refer to rehab or IOP, self-help groups UT for encouraging 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
[2018-09-27 06:32] VITALS: TEMP 98.2
[2018-09-27 08:44] VITALS: BP 120/82; PULSE 85; RESP 20; O2SAT 99
--- NOTE | 2018-09-27 19:05 | PCM.PYCHDC ---
Mental Status Examination - Mental Status Examination Orientation: Person, Place, Situation, Time Memory: Intact Mood: Neutral Affect: Broad Speech: Appropriate Attention: WNL Concentration: WNL Association: WNL Fund of Knowledge: WNL Formal Thought Process: No Impairment Description of patient's judgement and insight: Fair Suicidal Ideation: No Current Homicidal Ideation?: No Discharge Summary - Discharge Note Psychiatric History (includes Medical, Family, Personal Hx): History of 2 previous detox. Consultations:: List each consultation separately and include: 1. Reason for request. 2. Findings. 3. Follow-up Summary of Hospital Course include:: 1. Description of specific treatment plan utilized for patients during their course of treatmen. 2. Summarize the time- course for resolution of acute symptoms and/or regressed behaviors. 3. Describe issues identified and worked on during hospitalization. 4. Describe medication utilized. 5. Describe medical problems identified and treated. 6. Reassessment of suicide risk Summary of Hospital Course: The pt was admitted and started on treatment with psychotherapy, support, psychoeducation and medications. All the risks and benefits of medications are discussed and the patient understood and agreed. SC and CBT used. The pt attended groups and activities, as well as milieu therapy. The pt improved with the treatments provided. After care discussed with the patient. - Diagnosis (1) Opioid use disorder, severe, dependence Status: Acute (2) Sedative, hypnotic or anxiolytic use disorder, mild, abuse Assessment and Plan: Continue below medications after discharge. Follow after care plan as discussed. Use relapse prevention skills Return to ER or call 911 if suicidal, homicidal or symptoms relapse. Stay away from stress, alcohol and drugs. See primary doctor regularly and get labs. Status: Acute - Final Diagnosis (DSM 5) Condition upon Discharge: STABLE Disposition: HOME/ ROUTINE
== END 2018-09-27 10:30 | disposition home or self-care (01) | DRG 895 ==
LOC: C.ER 09:33 → C.7D 12:55
PROC: HZ2ZZZZ Detoxification Services for Substance Abuse Treatment (ICD-10-PCS; principal; 2018-09-23)
PROC: HZ52ZZZ Individual Psychotherapy for Substance Abuse Treatment, Cognitive-Behavioral (ICD-10-PCS; 2018-09-23)
PROC: HZ59ZZZ Individual Psychotherapy for Substance Abuse Treatment, Supportive (ICD-10-PCS; 2018-09-23)
PROC: HZ56ZZZ Individual Psychotherapy for Substance Abuse Treatment, Psychoeducation (ICD-10-PCS; 2018-09-23)
PROC: HZ42ZZZ Group Counseling for Substance Abuse Treatment, Cognitive-Behavioral (ICD-10-PCS; 2018-09-23)
PROC: HZ46ZZZ Group Counseling for Substance Abuse Treatment, Psychoeducation (ICD-10-PCS; 2018-09-23)
PROC: GZHZZZZ Group Psychotherapy (ICD-10-PCS; 2018-09-23)
PROC: GZ58ZZZ Individual Psychotherapy, Cognitive-Behavioral (ICD-10-PCS; 2018-09-23)
PROC: GZ56ZZZ Individual Psychotherapy, Supportive (ICD-10-PCS; 2018-09-23)
DX: F11.23 Opioid dependence with withdrawal (principal); F13.230 Sedative, hypnotic or anxiolytic dependence with withdrawal, uncomplicated; I10 Essential (primary) hypertension; F41.9 Anxiety disorder, unspecified; F32.9 Major depressive disorder, single episode, unspecified; F17.210 Nicotine dependence, cigarettes, uncomplicated